=== PATIENT | female | born 1955 | race African-American/Black ===

== ENCOUNTER 2016-12-21 07:20 | Inpatient (IN) | payer MEDICAID, OTHER, SELFPAY ==
[~2016-12-21] VITALS: Ht 165.1 cm; Wt 140.4 kg
[2016-12-21] MEDS ORDERED: NALOXONE 1 MG/ML, 2ML ONE (07:23)
[2016-12-21] MEDS ORDERED: CLEVIDIPINE 50 ML IV ONE (07:25)
[2016-12-21] MEDS: PROPOFOL 100 ML IV PRN ×2 (07:54→23:13)
[2016-12-21 07:59] LABS: HEMATOCRIT 41.9 % (34.6-47.8); HEMOGLOBIN 13.7 g/dL (11.7-16.4); WHITE BLOOD COUNT 13.7 x10^3/uL (3.4-10)
[2016-12-21] MEDS ORDERED: ETOMIDATE 20 MG/10 ML IVPush ONE (08:00)
[2016-12-21] MEDS ORDERED: MIDAZOLAM 1 MG/ML, 2ML IVPush ONE (08:00)
[2016-12-21] MEDS ORDERED: SUCCINYLCHOLINE 20 MG/ML, 10ML IVPush ONE (08:00)
[2016-12-21] MEDS ORDERED: NITROPRUSSIDE 50 MG in DEXTROSE 5% 248 ML IV PRN (08:00)
[2016-12-21] MEDS ORDERED: SODIUM CHLORIDE FLUSH 10ML SYR IVF ONE (08:00)
[2016-12-21 08:10] LABS: ASPARTATE AMINO TRANSFERASE 19 U/L (15-37); BLOOD UREA NITROGEN 8 mg/dL (7-18)
[2016-12-21 08:16] LABS: ACETAMINOPHEN < 2 mcg/mL (10-30); IS PT STATUS REG ER OR PRE ER? YES
[2016-12-21 08:34] LABS: DAU SCREEN DISCLAIMER
[2016-12-21 08:34] LABS: ABG COLLECTION SITE RIGHT RADIAL; COLLATERAL CIRCULATION TESTING NORMAL
[2016-12-21] MEDS ORDERED: OMNIPAQUE 350 MG/ML, 100ML BOTTLE ONE (10:23)
[2016-12-21] MEDS ORDERED: BISACODYL 10 MG SUPP PR PRN ×2 (11:00→12:30)
[2016-12-21] MEDS ORDERED: PHARMACY MAY ADJ FOR RENAL FX MC SCH (11:00)
[2016-12-21] MEDS ORDERED: SENNA/DOCUSATE TABLET NG PRN (11:00)
[2016-12-21] MEDS ORDERED: LIDOCAINE-MPF 1%, 2ML ENDO PRN (11:00)
[2016-12-21] MEDS ORDERED: LACTULOSE 20 GM/30 ML UDC NG PRN (11:00)
[2016-12-21] MEDS ORDERED: SENNOSIDES 8.8 MG/5 ML ORAL SOL NG PRN (11:00)
[2016-12-21] MEDS ORDERED: SUCCINYLCHOLINE 20 MG/ML, 10ML ONE (12:00)
[2016-12-21] MEDS ORDERED: ETOMIDATE 40 MG/20 ML ONE (12:00)
[2016-12-21] MEDS ORDERED: INSULIN ASPART 100 UNITS/ML, PEN SQ-INSULIN SCH (12:30)
[2016-12-21] MEDS ORDERED: POLYETHYLENE GLYCOL 17 GM PACKET PO PRN (12:30)
[2016-12-21] MEDS ORDERED: POTASSIUM CHLORIDE 40 MEQ in SODIUM CHLORIDE 0.9% 500 ML IV ONE (12:30)
[2016-12-21] MEDS ORDERED: PROPOFOL 100 ML IV ONE (12:51)
[2016-12-21] MEDS: INSULIN ASPART 100 UNITS/ML, PEN SQ-INSULIN SCH (19:30)
[2016-12-21] MEDS: FAMOTIDINE 20 MG/2 ML IVPush SCH (21:01)
[2016-12-22] MEDS: INSULIN ASPART 100 UNITS/ML, PEN SQ-INSULIN SCH ×2 (01:30→07:30)
[2016-12-22] MEDS ORDERED: SODIUM CHLORIDE 0.9%, 500ML IVBOLUS ONE (02:00)
[2016-12-22 04:00] VITALS: BP 155/84
[2016-12-22 04:34] LABS: ABG COLLECTION SITE LEFT RADIAL; COLLATERAL CIRCULATION TESTING NORMAL
[2016-12-22 04:35] LABS: HEMATOCRIT 38.9 % (34.6-47.8); HEMOGLOBIN 12.7 g/dL (11.7-16.4); WHITE BLOOD COUNT 15.4 x10^3/uL (3.4-10)
[2016-12-22 04:48] LABS: BLOOD UREA NITROGEN 8 mg/dL (7-18)
[2016-12-22 04:59] LABS: ASPARTATE AMINO TRANSFERASE 14 U/L (15-37)
[2016-12-22] MEDS: PROPOFOL 100 ML IV PRN (06:17)
[2016-12-22] MEDS ORDERED: POTASSIUM CHLORIDE 10% 40 MEQ/30 ML UDC PO ONE (07:30)
[2016-12-22] MEDS ORDERED: LEVETIRACETAM 1,000 MG in SODIUM CHLORIDE 0.9% 100 ML IV ONE (08:00)
[2016-12-22] MEDS: FAMOTIDINE 20 MG/2 ML IVPush SCH ×2 (08:04→20:52)
[2016-12-22] MEDS ORDERED: SODIUM CHLORIDE 0.9% 1,000 ML IV ONE (09:00)
[2016-12-22] MEDS: DILTIAZEM 30 MG TABLET PO SCH ×2 (13:19→19:45)
[2016-12-22] MEDS: LEVETIRACETAM 500 MG in SODIUM CHLORIDE 0.9% 100 ML IV SCH (19:45)
[2016-12-23] MEDS: DILTIAZEM 30 MG TABLET PO SCH (01:53)
[2016-12-23 04:00] VITALS: BP 142/64
[2016-12-23 04:24] LABS: ABG COLLECTION SITE RIGHT RADIAL; COLLATERAL CIRCULATION TESTING NORMAL; HEMATOCRIT 40.1 % (34.6-47.8); WHITE BLOOD COUNT 20.2 x10^3/uL (3.4-10)
[2016-12-23 04:34] LABS: BLOOD UREA NITROGEN 15 mg/dL (7-18)
[2016-12-23] MEDS ORDERED: PHARMACOKINETIC MONITORING MC PRN ×2 (07:30→16:30)
[2016-12-23] MEDS ORDERED: VANCOMYCIN PER PHARMACY MC PRN (07:30)
[2016-12-23] MEDS ORDERED: VANCOMYCIN 1,900 MG in SODIUM CHLORIDE 0.9% 250 ML IV SCH (07:30)
[2016-12-23] MEDS ORDERED: PHARMACOKINETIC CONSULTATION MC ONE (07:30)
[2016-12-23] MEDS: LEVETIRACETAM 500 MG in SODIUM CHLORIDE 0.9% 100 ML IV SCH ×2 (09:09→20:56)
[2016-12-23] MEDS: DILTIAZEM 60 MG TABLET PO SCH ×3 (09:10→20:55)
[2016-12-23] MEDS: FAMOTIDINE 20 MG/2 ML IVPush SCH ×2 (09:11→20:55)
[2016-12-23] MEDS ORDERED: POTASSIUM CHLORIDE 10% 40 MEQ/30 ML UDC PO ONE (09:30)
[2016-12-23] MEDS: PIPERACILLIN/TAZO/PMX 3.375GM 50 ML IV SCH ×3 (09:47→19:20)
[2016-12-23] MEDS ORDERED: PHARMACY MAY ADJ FOR RENAL FX MC SCH (16:30)
[2016-12-23] MEDS ORDERED: POLYETHYLENE GLYCOL 17 GM PACKET PO PRN (16:30)
[2016-12-23] MEDS ORDERED: BISACODYL 10 MG SUPP PR PRN ×2 (16:30)
[2016-12-23] MEDS ORDERED: LACTULOSE 20 GM/30 ML UDC NG PRN (16:30)
[2016-12-23] MEDS: SODIUM CHLORIDE 0.9% 1,000 ML IV SCH (19:22)
[2016-12-24] MEDS: PIPERACILLIN/TAZO/PMX 3.375GM 50 ML IV SCH ×4 (01:09→18:51)
[2016-12-24] MEDS: DILTIAZEM 60 MG TABLET PO SCH ×4 (03:40→20:48)
[2016-12-24] MEDS: VANCOMYCIN 1,900 MG in SODIUM CHLORIDE 0.9% 250 ML IV SCH ×2 (03:40→21:15)
[2016-12-24 05:00] VITALS: BP 139/59
[2016-12-24 05:44] LABS: ABG COLLECTION SITE RIGHT RADIAL; COLLATERAL CIRCULATION TESTING NORMAL
[2016-12-24 05:48] LABS: HEMATOCRIT 39.7 % (34.6-47.8); HEMOGLOBIN 12.6 g/dL (11.7-16.4); WHITE BLOOD COUNT 19.1 x10^3/uL (3.4-10)
[2016-12-24 06:00] LABS: BLOOD UREA NITROGEN 27 mg/dL (7-18)
[2016-12-24] MEDS: FAMOTIDINE 20 MG/2 ML IVPush SCH ×2 (07:46→20:48)
[2016-12-24] MEDS: SENNA/DOCUSATE TABLET NG PRN (07:46)
[2016-12-24] MEDS: LEVETIRACETAM 500 MG in SODIUM CHLORIDE 0.9% 100 ML IV SCH ×2 (09:14→20:48)
[2016-12-24] MEDS ORDERED: niCARDipine 100 MG in SODIUM CHLORIDE 0.9% 210 ML IV PRN (09:30)
[2016-12-24] MEDS: LISINOPRIL 10 MG TABLET PO SCH ×2 (09:38→20:48)
[2016-12-24] MEDS: hydrALAzine 20 MG/ML, 1ML IV PRN ×5 (12:33→23:27)
[2016-12-24] MEDS ORDERED: LABETALOL 5MG/ML, 20ML IV PRN (13:30)
[2016-12-24] MEDS: SODIUM CHLORIDE 0.9% 1,000 ML IV SCH (13:34)
[2016-12-24] MEDS ORDERED: POTASSIUM CHLORIDE 20 MEQ PACKET NG ONE (17:00)
[2016-12-24] MEDS: ACETAMINOPHEN 325 MG TABLET NG PRN (17:31)
[2016-12-25] MEDS: PIPERACILLIN/TAZO/PMX 3.375GM 50 ML IV SCH ×4 (02:38→20:13)
[2016-12-25] MEDS: DILTIAZEM 60 MG TABLET PO SCH ×4 (02:39→20:13)
[2016-12-25] MEDS: hydrALAzine 20 MG/ML, 1ML IV PRN ×3 (02:39→15:14)
[2016-12-25 04:11] LABS: ABG COLLECTION SITE RIGHT RADIAL; COLLATERAL CIRCULATION TESTING NORMAL; HEMATOCRIT 38.7 % (34.6-47.8); HEMOGLOBIN 12.3 g/dL (11.7-16.4)
[2016-12-25 04:24] LABS: BLOOD UREA NITROGEN 45 mg/dL (7-18)
[2016-12-25] MEDS: LEVETIRACETAM 500 MG in SODIUM CHLORIDE 0.9% 100 ML IV SCH ×2 (09:49→20:13)
[2016-12-25] MEDS: FAMOTIDINE 20 MG/2 ML IVPush SCH (09:51)
[2016-12-25] MEDS: LISINOPRIL 20 MG TABLET PO SCH ×2 (11:25→20:13)
[2016-12-25] MEDS: ESMOLOL/NS PMX 250 ML IV PRN (18:23)
[2016-12-25] MEDS: ACETAMINOPHEN 325 MG TABLET NG PRN (20:14)
[2016-12-25] MEDS: SODIUM CHLORIDE 0.9% 1,000 ML IV SCH (20:14)
[2016-12-26] MEDS: PIPERACILLIN/TAZO/PMX 3.375GM 50 ML IV SCH ×4 (01:43→19:54)
[2016-12-26] MEDS: DILTIAZEM 60 MG TABLET PO SCH ×4 (03:02→20:41)
[2016-12-26 03:44] VITALS: BP 131/54
[2016-12-26 03:59] LABS: HEMATOCRIT 36.6 % (34.6-47.8); HEMOGLOBIN 11.8 g/dL (11.7-16.4); WHITE BLOOD COUNT 17.8 x10^3/uL (3.4-10)
[2016-12-26 04:08] LABS: BLOOD UREA NITROGEN 55 mg/dL (7-18)
[2016-12-26 04:46] LABS: ABG COLLECTION SITE RIGHT RADIAL; COLLATERAL CIRCULATION TESTING NORMAL
[2016-12-26] MEDS: SODIUM CHLORIDE 0.45% 1,000 ML IV SCH ×2 (09:40→20:41)
[2016-12-26] MEDS: LISINOPRIL 20 MG TABLET PO SCH ×2 (09:40→20:41)
[2016-12-26] MEDS: LEVETIRACETAM 500 MG in SODIUM CHLORIDE 0.9% 100 ML IV SCH ×2 (09:40→19:54)
[2016-12-26] MEDS: FAMOTIDINE 20 MG/2 ML IVPush SCH (09:41)
[2016-12-26] MEDS: ESMOLOL/NS PMX 250 ML IV PRN (18:36)
[2016-12-26] MEDS: ACETAMINOPHEN 325 MG TABLET NG PRN (20:41)
[2016-12-27] MEDS: PIPERACILLIN/TAZO/PMX 3.375GM 50 ML IV SCH ×4 (02:38→21:08)
[2016-12-27] MEDS: DILTIAZEM 60 MG TABLET PO SCH ×4 (02:38→21:42)
[2016-12-27 04:00] VITALS: BP 121/55
[2016-12-27 04:22] LABS: HEMATOCRIT 30.7 % (34.6-47.8); HEMOGLOBIN 9.9 g/dL (11.7-16.4); WHITE BLOOD COUNT 19.9 x10^3/uL (3.4-10)
[2016-12-27 04:33] LABS: ABG COLLECTION SITE RIGHT RADIAL; COLLATERAL CIRCULATION TESTING NORMAL
[2016-12-27 04:36] LABS: BLOOD UREA NITROGEN 62 mg/dL (7-18)
[2016-12-27 04:39] LABS: ASPARTATE AMINO TRANSFERASE 37 U/L (15-37); DIFF TOTAL CELLS COUNTED 100 CELL DIFF
[2016-12-27 04:45] LABS: VERIFY COUNTS? YES
[2016-12-27] MEDS: SODIUM CHLORIDE 0.45% 1,000 ML IV SCH ×2 (05:41→17:10)
[2016-12-27] MEDS: ESMOLOL/NS PMX 250 ML IV PRN (05:42)
[2016-12-27] MEDS: LEVETIRACETAM 500 MG in SODIUM CHLORIDE 0.9% 100 ML IV SCH ×2 (08:06→21:08)
[2016-12-27] MEDS: FAMOTIDINE 20 MG/2 ML IVPush SCH (08:06)
[2016-12-27] MEDS: LISINOPRIL 20 MG TABLET PO SCH ×2 (08:11→21:38)
[2016-12-27] MEDS: ACETAMINOPHEN 325 MG TABLET NG PRN (10:30)
[2016-12-27] MEDS ORDERED: VANCOMYCIN 1,500 MG in SODIUM CHLORIDE 0.9% 250 ML IV ONE (17:00)
[2016-12-27] MEDS: CHOLESTYRAMINE LIGHT 4GM PACKET PO SCH (23:00)
[2016-12-28] MEDS: PIPERACILLIN/TAZO/PMX 3.375GM 50 ML IV SCH ×4 (02:30→21:19)
[2016-12-28 04:00] VITALS: BP 140/60
[2016-12-28] MEDS: DILTIAZEM 60 MG TABLET PO SCH ×4 (04:15→21:37)
[2016-12-28 04:35] LABS: ABG COLLECTION SITE RIGHT RADIAL; COLLATERAL CIRCULATION TESTING NORMAL
[2016-12-28 06:11] LABS: HEMATOCRIT 32.7 % (34.6-47.8); HEMOGLOBIN 10.5 g/dL (11.7-16.4); WHITE BLOOD COUNT 17.4 x10^3/uL (3.4-10)
[2016-12-28 06:15] LABS: BLOOD UREA NITROGEN 67 mg/dL (7-18)
[2016-12-28 07:00] LABS: DIFF TOTAL CELLS COUNTED 100 CELL DIFF
[2016-12-28 07:01] LABS: VERIFY COUNTS? YES
[2016-12-28 07:02] LABS: ANISOCYTOSIS 1+; HYPOCHROMIA 1+
[2016-12-28] MEDS: LEVETIRACETAM 500 MG in SODIUM CHLORIDE 0.9% 100 ML IV SCH ×2 (08:23→21:07)
[2016-12-28] MEDS: LISINOPRIL 20 MG TABLET PO SCH ×2 (08:24→21:19)
[2016-12-28] MEDS: FAMOTIDINE 20 MG/2 ML IVPush SCH (08:25)
[2016-12-28] MEDS: CHOLESTYRAMINE LIGHT 4GM PACKET PO SCH ×2 (08:25→21:19)
[2016-12-28] MEDS: SODIUM CHLORIDE 0.45% 1,000 ML IV SCH ×3 (08:26→23:42)
[2016-12-28] MEDS: ALBUMIN HUMAN 25% 100 ML IV SCH ×2 (12:46→19:46)
[2016-12-28] MEDS: hydrALAzine 20 MG/ML, 1ML IV PRN (21:33)
[2016-12-29] MEDS: ESMOLOL/NS PMX 250 ML IV PRN (02:54)
[2016-12-29] MEDS: PIPERACILLIN/TAZO/PMX 3.375GM 50 ML IV SCH ×4 (03:00→22:14)
[2016-12-29 04:00] VITALS: BP 138/62
[2016-12-29] MEDS: ALBUMIN HUMAN 25% 100 ML IV SCH ×3 (04:09→20:24)
[2016-12-29] MEDS: DILTIAZEM 60 MG TABLET PO SCH ×4 (04:14→21:42)
[2016-12-29 05:11] LABS: ABG COLLECTION SITE RIGHT RADIAL; COLLATERAL CIRCULATION TESTING NORMAL
[2016-12-29 05:20] LABS: HEMATOCRIT 31.1 % (34.6-47.8); HEMOGLOBIN 10.1 g/dL (11.7-16.4); WHITE BLOOD COUNT 16.3 x10^3/uL (3.4-10)
[2016-12-29 05:34] LABS: BLOOD UREA NITROGEN 56 mg/dL (7-18)
[2016-12-29 05:36] LABS: DIFF TOTAL CELLS COUNTED 100 CELL DIFF
[2016-12-29 05:38] LABS: ANISOCYTOSIS 1+; VERIFY COUNTS? YES
[2016-12-29] MEDS: LEVETIRACETAM 500 MG in SODIUM CHLORIDE 0.9% 100 ML IV SCH ×2 (08:07→21:38)
[2016-12-29] MEDS: FAMOTIDINE 20 MG/2 ML IVPush SCH (09:21)
[2016-12-29] MEDS: CHOLESTYRAMINE LIGHT 4GM PACKET PO SCH ×2 (09:21→21:43)
[2016-12-29] MEDS: SODIUM CHLORIDE 0.45% 1,000 ML IV SCH (11:55)
[2016-12-29] MEDS ORDERED: VANCOMYCIN 1,500 MG in SODIUM CHLORIDE 0.9% 250 ML IV SCH (17:00)
[2016-12-30] MEDS: SODIUM CHLORIDE 0.45% 1,000 ML IV SCH ×3 (01:41→22:46)
[2016-12-30] MEDS: ESMOLOL/NS PMX 250 ML IV PRN ×3 (01:42→16:33)
[2016-12-30] MEDS: ALBUMIN HUMAN 25% 100 ML IV SCH ×3 (02:39→19:18)
[2016-12-30 03:00] LABS: HEMATOCRIT 28.8 % (34.6-47.8); HEMOGLOBIN 9.4 g/dL (11.7-16.4); WHITE BLOOD COUNT 16.5 x10^3/uL (3.4-10)
[2016-12-30 03:11] LABS: BLOOD UREA NITROGEN 59 mg/dL (7-18)
[2016-12-30] MEDS: PIPERACILLIN/TAZO/PMX 3.375GM 50 ML IV SCH ×2 (03:39→09:00)
[2016-12-30] MEDS: DILTIAZEM 60 MG TABLET PO SCH ×4 (03:40→21:17)
[2016-12-30 04:00] VITALS: BP 130/68
[2016-12-30 04:45] LABS: DIFF TOTAL CELLS COUNTED 100 CELL DIFF
[2016-12-30 04:47] LABS: VERIFY COUNTS? YES
[2016-12-30 04:48] LABS: ANISOCYTOSIS 1+
[2016-12-30 04:56] LABS: ABG COLLECTION SITE LEFT RADIAL; COLLATERAL CIRCULATION TESTING NORMAL
[2016-12-30] MEDS: LEVETIRACETAM 500 MG in SODIUM CHLORIDE 0.9% 100 ML IV SCH ×2 (08:24→21:17)
[2016-12-30] MEDS: FAMOTIDINE 20 MG/2 ML IVPush SCH (09:00)
[2016-12-30] MEDS: CHOLESTYRAMINE LIGHT 4GM PACKET PO SCH ×2 (10:37→21:17)
[2016-12-30] MEDS: CEFTRIAXONE PMX 2GM/50ML 50 ML IVPB SCH (10:38)
[2016-12-30] MEDS: LINEZOLID PMX 600MG/300ML 300 ML IV SCH ×2 (11:40→22:46)
[2016-12-30] MEDS ORDERED: LACTULOSE 20 GM/30 ML UDC NG PRN (17:00)
[2016-12-30] MEDS ORDERED: BISACODYL 10 MG SUPP PR PRN ×2 (17:00)
[2016-12-30] MEDS ORDERED: LIDOCAINE-MPF 1%, 2ML ENDO PRN (17:00)
[2016-12-30] MEDS ORDERED: SENNOSIDES 8.8 MG/5 ML ORAL SOL NG PRN (17:00)
[2016-12-30] MEDS ORDERED: POLYETHYLENE GLYCOL 17 GM PACKET PO PRN (17:00)
[2016-12-30] MEDS ORDERED: PHARMACY MAY ADJ FOR RENAL FX MC SCH (17:00)
[2016-12-31] MEDS: ESMOLOL/NS PMX 250 ML IV PRN ×2 (00:58→13:08)
[2016-12-31 03:06] LABS: HEMOGLOBIN 9.2 g/dL (11.7-16.4); WHITE BLOOD COUNT 19.6 x10^3/uL (3.4-10)
[2016-12-31 03:12] LABS: BLOOD UREA NITROGEN 64 mg/dL (7-18)
[2016-12-31] MEDS: ALBUMIN HUMAN 25% 100 ML IV SCH ×3 (03:29→19:53)
[2016-12-31] MEDS: SODIUM CHLORIDE 0.45% 1,000 ML IV SCH ×2 (03:30→16:06)
[2016-12-31] MEDS: DILTIAZEM 60 MG TABLET PO SCH ×4 (03:30→21:31)
[2016-12-31 04:00] VITALS: BP 129/67
[2016-12-31 04:00] LABS: DIFF TOTAL CELLS COUNTED 100 CELL DIFF
[2016-12-31 04:04] LABS: ANISOCYTOSIS 1+; VERIFY COUNTS? YES
[2016-12-31 04:05] LABS: HYPOCHROMIA 1+; POLYCHROMASIA 1+
[2016-12-31 04:30] LABS: ABG COLLECTION SITE LEFT RADIAL; COLLATERAL CIRCULATION TESTING NORMAL
[2016-12-31] MEDS ORDERED: PANTOPRAZOLE 40 MG IV IVPush SCH (07:30)
[2016-12-31] MEDS: PANTOPRAZOLE 40 MG IV IVPush SCH (08:13)
[2016-12-31] MEDS: LEVETIRACETAM 500 MG in SODIUM CHLORIDE 0.9% 100 ML IV SCH ×2 (08:13→19:53)
[2016-12-31] MEDS: CEFTRIAXONE PMX 2GM/50ML 50 ML IVPB SCH (09:52)
[2016-12-31] MEDS: CHOLESTYRAMINE LIGHT 4GM PACKET PO SCH ×2 (09:52→21:31)
[2016-12-31] MEDS: LINEZOLID PMX 600MG/300ML 300 ML IV SCH ×2 (10:57→22:23)
[2016-12-31] MEDS: [UNRECOGNIZED DRUG - OTHER] PO PRN (19:56)
[2017-01-01] MEDS: PROPOFOL 100 ML IV PRN ×3 (02:30→20:41)
[2017-01-01] MEDS: ALBUMIN HUMAN 25% 100 ML IV SCH ×3 (03:29→21:33)
[2017-01-01] MEDS: SODIUM CHLORIDE 0.45% 1,000 ML IV SCH (03:29)
[2017-01-01] MEDS: DILTIAZEM 60 MG TABLET PO SCH ×4 (03:31→20:40)
[2017-01-01 03:49] LABS: HEMATOCRIT 26.5 % (34.6-47.8); HEMOGLOBIN 8.8 g/dL (11.7-16.4); WHITE BLOOD COUNT 19.5 x10^3/uL (3.4-10)
[2017-01-01 03:58] LABS: ASPARTATE AMINO TRANSFERASE 27 U/L (15-37); BLOOD UREA NITROGEN 57 mg/dL (7-18)
[2017-01-01 04:18] LABS: ABG COLLECTION SITE LEFT RADIAL; COLLATERAL CIRCULATION TESTING NORMAL
[2017-01-01 04:39] LABS: DIFF TOTAL CELLS COUNTED 100 CELL DIFF
[2017-01-01 04:41] LABS: ANISOCYTOSIS 1+; POLYCHROMASIA 1+; VERIFY COUNTS? YES
[2017-01-01 05:00] VITALS: BP 126/65
[2017-01-01] MEDS: LEVETIRACETAM 500 MG in SODIUM CHLORIDE 0.9% 100 ML IV SCH ×2 (08:06→20:37)
[2017-01-01] MEDS: PANTOPRAZOLE 40 MG IV IVPush SCH (08:13)
[2017-01-01] MEDS ORDERED: FUROSEMIDE 40 MG/4 ML IV ONE ×2 (09:30→14:00)
[2017-01-01] MEDS ORDERED: FENTANYL PF 100 MCG/2ML IVPush PRN (09:30)
[2017-01-01] MEDS: CHOLESTYRAMINE LIGHT 4GM PACKET PO SCH ×2 (11:08→20:41)
[2017-01-01] MEDS: LINEZOLID PMX 600MG/300ML 300 ML IV SCH ×2 (11:11→22:34)
[2017-01-01] MEDS: CEFTRIAXONE PMX 2GM/50ML 50 ML IVPB SCH (11:11)
[2017-01-01] MEDS: ESMOLOL/NS PMX 250 ML IV PRN (16:21)
[2017-01-01] MEDS: [UNRECOGNIZED DRUG - OTHER] PO PRN ×2 (20:46→22:34)
[2017-01-02] MEDS: ALBUMIN HUMAN 25% 100 ML IV SCH ×3 (02:32→19:20)
[2017-01-02] MEDS: [UNRECOGNIZED DRUG - OTHER] PO PRN ×3 (02:32→22:11)
[2017-01-02] MEDS: PROPOFOL 100 ML IV PRN ×3 (02:35→18:21)
[2017-01-02] MEDS: DILTIAZEM 60 MG TABLET PO SCH ×4 (03:25→20:51)
[2017-01-02 04:12] VITALS: BP 112/68
[2017-01-02 04:34] LABS: ABG COLLECTION SITE RIGHT RADIAL; COLLATERAL CIRCULATION TESTING NORMAL
[2017-01-02 05:42] LABS: HEMATOCRIT 23.3 % (34.6-47.8); HEMOGLOBIN 7.6 g/dL (11.7-16.4); WHITE BLOOD COUNT 17.5 x10^3/uL (3.4-10)
[2017-01-02 05:45] LABS: BLOOD UREA NITROGEN 55 mg/dL (7-18)
[2017-01-02] MEDS: LEVETIRACETAM 500 MG in SODIUM CHLORIDE 0.9% 100 ML IV SCH ×2 (08:10→19:20)
[2017-01-02] MEDS: PANTOPRAZOLE 40 MG IV IVPush SCH (08:10)
[2017-01-02] MEDS: ESMOLOL/NS PMX 250 ML IV PRN (08:11)
[2017-01-02] MEDS: CHOLESTYRAMINE LIGHT 4GM PACKET PO SCH ×2 (10:13→20:50)
[2017-01-02] MEDS: DOXAZOSIN 2MG TABLET NG SCH (10:50)
[2017-01-02] MEDS: FUROSEMIDE 40 MG/4 ML IV SCH ×2 (10:50→20:51)
[2017-01-02] MEDS: DEXAMETHASONE 4 MG/ML, 1ML IVPush SCH ×3 (10:50→20:51)
[2017-01-02] MEDS: CEFTRIAXONE PMX 2GM/50ML 50 ML IVPB SCH (10:51)
[2017-01-02] MEDS: LINEZOLID PMX 600MG/300ML 300 ML IV SCH ×2 (10:51→22:08)
[2017-01-02] MEDS: POTASSIUM CHLORIDE 10% 40 MEQ/30 ML UDC PO SCH ×2 (14:51→20:50)
[2017-01-03] MEDS: ALBUMIN HUMAN 25% 100 ML IV SCH ×3 (03:02→18:36)
[2017-01-03] MEDS: DILTIAZEM 60 MG TABLET PO SCH ×4 (03:06→21:39)
[2017-01-03] MEDS: DEXAMETHASONE 4 MG/ML, 1ML IVPush SCH ×4 (03:06→21:38)
[2017-01-03] MEDS: [UNRECOGNIZED DRUG - OTHER] PO PRN ×5 (03:07→16:15)
[2017-01-03 04:59] VITALS: BP 130/60
[2017-01-03 05:10] LABS: ABG COLLECTION SITE RIGHT RADIAL; COLLATERAL CIRCULATION TESTING NORMAL
[2017-01-03 05:29] LABS: HEMATOCRIT 25.6 % (34.6-47.8); HEMOGLOBIN 8.4 g/dL (11.7-16.4); WHITE BLOOD COUNT 19.4 x10^3/uL (3.4-10)
[2017-01-03 05:35] LABS: BLOOD UREA NITROGEN 67 mg/dL (7-18)
[2017-01-03] MEDS: PANTOPRAZOLE 40 MG IV IVPush SCH (07:47)
[2017-01-03] MEDS: LEVETIRACETAM 500 MG in SODIUM CHLORIDE 0.9% 100 ML IV SCH ×2 (07:47→19:32)
[2017-01-03] MEDS: DOXAZOSIN 2MG TABLET NG SCH (07:48)
[2017-01-03] MEDS: CHOLESTYRAMINE LIGHT 4GM PACKET PO SCH ×2 (09:54→20:31)
[2017-01-03] MEDS: LINEZOLID PMX 600MG/300ML 300 ML IV SCH ×2 (09:54→21:39)
[2017-01-03] MEDS: CEFTRIAXONE PMX 2GM/50ML 50 ML IVPB SCH (09:54)
[2017-01-03] MEDS: ESMOLOL/NS PMX 250 ML IV PRN (18:35)
[2017-01-03] MEDS: PROPOFOL 100 ML IV PRN ×2 (18:35→20:31)
[2017-01-04] MEDS: DILTIAZEM 60 MG TABLET PO SCH ×4 (02:55→20:58)
[2017-01-04] MEDS: ALBUMIN HUMAN 25% 100 ML IV SCH ×3 (02:55→20:55)
[2017-01-04] MEDS: DEXAMETHASONE 4 MG/ML, 1ML IVPush SCH (02:55)
[2017-01-04 03:22] LABS: HEMATOCRIT 25.4 % (34.6-47.8); HEMOGLOBIN 8.1 g/dL (11.7-16.4); WHITE BLOOD COUNT 21.9 x10^3/uL (3.4-10)
[2017-01-04 03:31] LABS: BLOOD UREA NITROGEN 76 mg/dL (7-18)
[2017-01-04 04:25] LABS: ABG COLLECTION SITE LEFT RADIAL; COLLATERAL CIRCULATION TESTING NORMAL
[2017-01-04] MEDS: ESMOLOL/NS PMX 250 ML IV PRN ×3 (06:31→20:01)
[2017-01-04] MEDS: LEVETIRACETAM 500 MG in SODIUM CHLORIDE 0.9% 100 ML IV SCH ×2 (08:28→19:57)
[2017-01-04] MEDS: PANTOPRAZOLE 40 MG IV IVPush SCH (08:28)
[2017-01-04] MEDS: [UNRECOGNIZED DRUG - OTHER] PO PRN ×4 (08:32→19:59)
[2017-01-04] MEDS: PROPOFOL 100 ML IV PRN ×2 (10:08→18:00)
[2017-01-04] MEDS: CHOLESTYRAMINE LIGHT 4GM PACKET PO SCH ×2 (10:09→20:57)
[2017-01-04] MEDS: DOXAZOSIN 2MG TABLET NG SCH (10:09)
[2017-01-04] MEDS: CEFTRIAXONE PMX 2GM/50ML 50 ML IVPB SCH (10:09)
[2017-01-04] MEDS: SPIRONOLACTONE 25 MG TABLET PO SCH (10:16)
[2017-01-04] MEDS: LINEZOLID PMX 600MG/300ML 300 ML IV SCH ×2 (10:32→22:44)
[2017-01-05] MEDS: PROPOFOL 100 ML IV PRN ×3 (00:57→19:48)
[2017-01-05] MEDS: DILTIAZEM 60 MG TABLET PO SCH ×4 (03:32→21:13)
[2017-01-05] MEDS: [UNRECOGNIZED DRUG - OTHER] PO PRN ×4 (03:32→11:20)
[2017-01-05 04:14] LABS: HEMATOCRIT 25.4 % (34.6-47.8); HEMOGLOBIN 8.1 g/dL (11.7-16.4); WHITE BLOOD COUNT 17.1 x10^3/uL (3.4-10)
[2017-01-05 04:21] LABS: BLOOD UREA NITROGEN 89 mg/dL (7-18)
[2017-01-05 04:44] LABS: ABG COLLECTION SITE LEFT RADIAL; COLLATERAL CIRCULATION TESTING NORMAL
[2017-01-05] MEDS: ALBUMIN HUMAN 25% 100 ML IV SCH ×3 (05:13→21:12)
[2017-01-05] MEDS: ESMOLOL/NS PMX 250 ML IV PRN ×2 (05:18→21:41)
[2017-01-05] MEDS: PANTOPRAZOLE 40 MG IV IVPush SCH (07:14)
[2017-01-05] MEDS: LEVETIRACETAM 500 MG in SODIUM CHLORIDE 0.9% 100 ML IV SCH ×2 (07:15→19:54)
[2017-01-05] MEDS: CEFTRIAXONE PMX 2GM/50ML 50 ML IVPB SCH (10:21)
[2017-01-05] MEDS: SPIRONOLACTONE 25 MG TABLET PO SCH (10:21)
[2017-01-05] MEDS: DOXAZOSIN 2MG TABLET NG SCH (10:21)
[2017-01-05] MEDS: SENNA/DOCUSATE TABLET NG PRN (10:22)
[2017-01-05] MEDS: LINEZOLID PMX 600MG/300ML 300 ML IV SCH ×2 (11:20→22:26)
[2017-01-05 21:25] LABS: HEMOGLOBIN 7.7 g/dL (11.7-16.4); WHITE BLOOD COUNT 19.9 x10^3/uL (3.4-10)
[2017-01-05 21:43] LABS: DIFF TOTAL CELLS COUNTED 100 CELL DIFF
[2017-01-05 21:44] LABS: VERIFY COUNTS? YES
[2017-01-05 21:45] LABS: ANISOCYTOSIS 1+
[2017-01-06] MEDS: DILTIAZEM 60 MG TABLET PO SCH ×4 (03:56→21:21)
[2017-01-06] MEDS: [UNRECOGNIZED DRUG - OTHER] PO PRN ×2 (03:57→09:30)
[2017-01-06 04:00] VITALS: BP 136/68
[2017-01-06] MEDS: ALBUMIN HUMAN 25% 100 ML IV SCH ×3 (04:11→20:49)
[2017-01-06 04:16] LABS: ABG COLLECTION SITE RIGHT RADIAL; COLLATERAL CIRCULATION TESTING NORMAL
[2017-01-06 04:18] LABS: HEMATOCRIT 24.6 % (34.6-47.8); HEMOGLOBIN 7.6 g/dL (11.7-16.4); WHITE BLOOD COUNT 18.4 x10^3/uL (3.4-10)
[2017-01-06 04:28] LABS: BLOOD UREA NITROGEN 92 mg/dL (7-18)
[2017-01-06 04:30] LABS: DIFF TOTAL CELLS COUNTED 100 CELL DIFF
[2017-01-06 04:31] LABS: VERIFY COUNTS? YES
[2017-01-06 04:32] LABS: ANISOCYTOSIS 1+; MICROCYTOSIS 1+
[2017-01-06 06:18] VITALS: BP 136/68
[2017-01-06] MEDS ORDERED: FENTANYL PF 100 MCG/2ML IVPush ONE (08:30)
[2017-01-06] MEDS: SPIRONOLACTONE 25 MG TABLET PO SCH (09:29)
[2017-01-06] MEDS: CEFTRIAXONE PMX 2GM/50ML 50 ML IVPB SCH (09:29)
[2017-01-06] MEDS: DOXAZOSIN 2MG TABLET NG SCH (09:29)
[2017-01-06] MEDS: PANTOPRAZOLE 40 MG IV IVPush SCH (09:30)
[2017-01-06] MEDS: LEVETIRACETAM 500 MG in SODIUM CHLORIDE 0.9% 100 ML IV SCH ×2 (09:30→20:06)
[2017-01-06] MEDS: LINEZOLID PMX 600MG/300ML 300 ML IV SCH ×2 (10:53→22:45)
[2017-01-06] MEDS: FENTANYL PF 2,500 MCG in SODIUM CHLORIDE 0.9% 200 ML IV PRN (10:54)
[2017-01-06] MEDS: INSULIN DETEMIR 100 UNITS/ML, PEN SQ-INSULIN SCH ×2 (11:10→20:06)
[2017-01-06] MEDS: INSULIN ASPART 100 UNITS/ML, PEN SQ-INSULIN SCH ×3 (11:11→21:06)
[2017-01-06] MEDS ORDERED: BISACODYL 10 MG SUPP PR PRN ×2 (15:00)
[2017-01-06] MEDS ORDERED: LACTULOSE 20 GM/30 ML UDC NG PRN (15:00)
[2017-01-06] MEDS ORDERED: PHARMACY MAY ADJ FOR RENAL FX MC SCH ×2 (15:00)
[2017-01-06] MEDS ORDERED: LIDOCAINE-MPF 1%, 2ML ENDO PRN (15:00)
[2017-01-06] MEDS ORDERED: SENNA/DOCUSATE TABLET NG PRN (15:00)
[2017-01-06] MEDS ORDERED: ACETAMINOPHEN 325 MG TABLET NG PRN ×2 (15:00)
[2017-01-06] MEDS ORDERED: POLYETHYLENE GLYCOL 17 GM PACKET PO PRN (15:00)
[2017-01-06] MEDS: ESMOLOL/NS PMX 250 ML IV PRN ×2 (16:34→19:48)
[2017-01-07 03:30] VITALS: BP 141/68
[2017-01-07] MEDS: DILTIAZEM 60 MG TABLET PO SCH (03:39)
[2017-01-07] MEDS: ALBUMIN HUMAN 25% 100 ML IV SCH ×3 (05:08→19:57)
[2017-01-07] MEDS: SPIRONOLACTONE 25 MG TABLET PO SCH (07:54)
[2017-01-07] MEDS: PANTOPRAZOLE 40 MG IV IVPush SCH (07:54)
[2017-01-07] MEDS: LEVETIRACETAM 500 MG in SODIUM CHLORIDE 0.9% 100 ML IV SCH ×2 (07:54→19:58)
[2017-01-07] MEDS: INSULIN DETEMIR 100 UNITS/ML, PEN SQ-INSULIN SCH ×2 (07:55→19:55)
[2017-01-07] MEDS: INSULIN ASPART 100 UNITS/ML, PEN SQ-INSULIN SCH ×4 (07:55→19:56)
[2017-01-07] MEDS: DOXAZOSIN 2MG TABLET NG SCH (07:56)
[2017-01-07] MEDS: DILTIAZEM 90 MG TABLET PO SCH ×3 (08:24→20:08)
[2017-01-07] MEDS: LINEZOLID PMX 600MG/300ML 300 ML IV SCH ×2 (11:21→21:37)
[2017-01-07] MEDS: CEFTRIAXONE PMX 2GM/50ML 50 ML IVPB SCH (11:21)
[2017-01-07] MEDS ORDERED: FUROSEMIDE 40 MG/4 ML IV ONE (14:00)
[2017-01-07] MEDS: FENTANYL PF 2,500 MCG in SODIUM CHLORIDE 0.9% 200 ML IV PRN (21:37)
[2017-01-08] MEDS: DILTIAZEM 90 MG TABLET PO SCH ×4 (01:18→20:26)
[2017-01-08] MEDS ORDERED: FUROSEMIDE 40 MG/4 ML IV ONE (02:00)
[2017-01-08] MEDS: ALBUMIN HUMAN 25% 100 ML IV SCH ×2 (04:14→13:56)
[2017-01-08] MEDS: INSULIN ASPART 100 UNITS/ML, PEN SQ-INSULIN SCH ×4 (04:19→23:30)
[2017-01-08 04:44] LABS: HEMOGLOBIN 7.1 g/dL (11.7-16.4); WHITE BLOOD COUNT 17.6 x10^3/uL (3.4-10)
[2017-01-08 04:54] LABS: HEMATOCRIT 22.4 % (34.6-47.8)
[2017-01-08 04:56] LABS: ASPARTATE AMINO TRANSFERASE 36 U/L (15-37)
[2017-01-08 05:00] VITALS: BP 125/62
[2017-01-08 05:17] LABS: BLOOD UREA NITROGEN 114 mg/dL (7-18)
[2017-01-08] MEDS: PANTOPRAZOLE 40 MG IV IVPush SCH (08:46)
[2017-01-08] MEDS: INSULIN DETEMIR 100 UNITS/ML, PEN SQ-INSULIN SCH ×2 (08:46→19:22)
[2017-01-08] MEDS: LEVETIRACETAM 500 MG in SODIUM CHLORIDE 0.9% 100 ML IV SCH ×2 (08:46→19:22)
[2017-01-08] MEDS: SPIRONOLACTONE 25 MG TABLET PO SCH (08:47)
[2017-01-08] MEDS: DOXAZOSIN 2MG TABLET NG SCH (08:47)
[2017-01-08] MEDS: MICAFUNGIN 100 MG in SODIUM CHLORIDE 0.9% 100 ML IV SCH (09:14)
[2017-01-08 09:21] LABS: ABG COLLECTION SITE RIGHT RADIAL; COLLATERAL CIRCULATION TESTING NORMAL
[2017-01-08] MEDS: CEFTRIAXONE PMX 2GM/50ML 50 ML IVPB SCH (10:31)
[2017-01-08] MEDS: LINEZOLID PMX 600MG/300ML 300 ML IV SCH (11:45)
[2017-01-08] MEDS: FUROSEMIDE 100 MG/10 ML IV SCH ×2 (13:07→21:00)
[2017-01-08 13:39] LABS: FERRITIN 661.7 ng/mL (8-252)
[2017-01-08 14:01] VITALS: BP 130/69
[2017-01-08 14:10] LABS: POTASSIUM,URINE RANDOM 22 mmol/L
[2017-01-08 14:23] VITALS: BP 125/70
[2017-01-08 17:17] VITALS: BP 108/58
[2017-01-08 17:18] VITALS: BP 108/58
[2017-01-08 17:33] VITALS: BP 108/58
[2017-01-09] MEDS: LINEZOLID PMX 600MG/300ML 300 ML IV SCH ×2 (00:12→14:51)
[2017-01-09] MEDS: DILTIAZEM 90 MG TABLET PO SCH ×4 (02:33→20:07)
[2017-01-09 04:00] VITALS: BP 128/68
[2017-01-09 04:53] LABS: HEMOGLOBIN 7.7 g/dL (11.7-16.4)
[2017-01-09] MEDS: INSULIN ASPART 100 UNITS/ML, PEN SQ-INSULIN SCH ×4 (05:00→23:00)
[2017-01-09 05:10] LABS: BLOOD UREA NITROGEN 104 mg/dL (7-18)
[2017-01-09 05:14] LABS: ASPARTATE AMINO TRANSFERASE 36 U/L (15-37)
[2017-01-09 05:24] LABS: DIFF TOTAL CELLS COUNTED 100 CELL DIFF
[2017-01-09 05:29] LABS: ANISOCYTOSIS 1+; MICROCYTOSIS 1+; VERIFY COUNTS? YES
[2017-01-09] MEDS: FENTANYL PF 2,500 MCG in SODIUM CHLORIDE 0.9% 200 ML IV PRN (06:12)
[2017-01-09] MEDS: DOXAZOSIN 2MG TABLET NG SCH (08:35)
[2017-01-09] MEDS: PANTOPRAZOLE 40 MG IV IVPush SCH (08:35)
[2017-01-09] MEDS: SPIRONOLACTONE 25 MG TABLET PO SCH (08:35)
[2017-01-09] MEDS: LEVETIRACETAM 500 MG in SODIUM CHLORIDE 0.9% 100 ML IV SCH ×2 (08:35→20:06)
[2017-01-09] MEDS: FUROSEMIDE 100 MG/10 ML IV SCH ×2 (08:36→20:49)
[2017-01-09] MEDS: INSULIN DETEMIR 100 UNITS/ML, PEN SQ-INSULIN SCH ×2 (08:38→20:06)
[2017-01-09] MEDS: MICAFUNGIN 100 MG in SODIUM CHLORIDE 0.9% 100 ML IV SCH (09:40)
[2017-01-09 09:42] LABS: HEP B SURF. AB < 3.1 mIU/mL (0.0-10.0)
[2017-01-09] MEDS: CEFTRIAXONE PMX 2GM/50ML 50 ML IVPB SCH (10:32)
[2017-01-09] MEDS: IRON SUCROSE COMPLEX 100MG/5ML IV SCH (12:23)
[2017-01-09] MEDS: ERGOCALCIFEROL 50,000 UNIT CAPSULE PO SCH (12:23)
[2017-01-09 14:37] LABS: ANA SCREEN NEGATIVE (Negative)
[2017-01-10] MEDS: LINEZOLID PMX 600MG/300ML 300 ML IV SCH ×2 (01:46→16:41)
[2017-01-10] MEDS: DILTIAZEM 90 MG TABLET PO SCH ×4 (02:35→20:33)
[2017-01-10 03:23] LABS: BLOOD UREA NITROGEN 90 mg/dL (7-18)
[2017-01-10 03:25] LABS: WHITE BLOOD COUNT 12.6 x10^3/uL (3.4-10)
[2017-01-10 03:26] LABS: ASPARTATE AMINO TRANSFERASE 31 U/L (15-37)
[2017-01-10 03:45] LABS: HEMATOCRIT 22.5 % (34.6-47.8)
[2017-01-10 04:00] VITALS: BP 135/60
[2017-01-10 04:38] LABS: ABG COLLECTION SITE RIGHT RADIAL; COLLATERAL CIRCULATION TESTING NORMAL
[2017-01-10] MEDS: INSULIN ASPART 100 UNITS/ML, PEN SQ-INSULIN SCH ×4 (05:00→23:01)
[2017-01-10] MEDS: FENTANYL PF 2,500 MCG in SODIUM CHLORIDE 0.9% 200 ML IV PRN (06:17)
[2017-01-10] MEDS: PANTOPRAZOLE 40 MG IV IVPush SCH (07:22)
[2017-01-10] MEDS: LEVETIRACETAM 500 MG in SODIUM CHLORIDE 0.9% 100 ML IV SCH ×2 (07:22→20:32)
[2017-01-10] MEDS: INSULIN DETEMIR 100 UNITS/ML, PEN SQ-INSULIN SCH ×2 (07:22→20:33)
[2017-01-10 10:07] LABS: COMPLEMENT C3 113 mg/dL (82-167); COMPLEMENT C4 28 mg/dL (14-44); COMPLEMENT TOTAL (CH50) >60 U/mL (42-60)
[2017-01-10] MEDS: FUROSEMIDE 100 MG/10 ML IV SCH ×2 (13:10→20:37)
[2017-01-10] MEDS: ERYTHROMYCIN 250 MG in SODIUM CHLORIDE 0.9% 100 ML IV SCH ×2 (13:10→19:02)
[2017-01-10] MEDS: DOXAZOSIN 2MG TABLET NG SCH (13:11)
[2017-01-10] MEDS: IRON SUCROSE COMPLEX 100MG/5ML IV SCH (13:14)
[2017-01-10] MEDS: CEFTRIAXONE PMX 2GM/50ML 50 ML IVPB SCH (14:25)
[2017-01-10] MEDS: MICAFUNGIN 100 MG in SODIUM CHLORIDE 0.9% 100 ML IV SCH (15:22)
[2017-01-11] MEDS: ERYTHROMYCIN 250 MG in SODIUM CHLORIDE 0.9% 100 ML IV SCH ×2 (00:41→06:31)
[2017-01-11] MEDS: LINEZOLID PMX 600MG/300ML 300 ML IV SCH ×2 (02:14→18:09)
[2017-01-11] MEDS: DILTIAZEM 90 MG TABLET PO SCH ×4 (02:36→21:44)
[2017-01-11 03:26] LABS: WHITE BLOOD COUNT 10.5 x10^3/uL (3.4-10)
[2017-01-11 03:27] LABS: HEMATOCRIT 21.1 % (34.6-47.8); HEMOGLOBIN 6.7 g/dL (11.7-16.4)
[2017-01-11 04:00] VITALS: BP 146/53
[2017-01-11 04:48] VITALS: BP 121/55
[2017-01-11 05:01] VITALS: BP 119/57
[2017-01-11] MEDS: INSULIN ASPART 100 UNITS/ML, PEN SQ-INSULIN SCH ×4 (05:23→23:17)
[2017-01-11] MEDS: hydrALAzine 20 MG/ML, 1ML IV PRN (06:34)
[2017-01-11 06:40] VITALS: BP 155/65
[2017-01-11] MEDS: FENTANYL PF 2,500 MCG in SODIUM CHLORIDE 0.9% 200 ML IV PRN (08:56)
[2017-01-11] MEDS: PANTOPRAZOLE 40 MG IV IVPush SCH (08:57)
[2017-01-11] MEDS: LEVETIRACETAM 500 MG in SODIUM CHLORIDE 0.9% 100 ML IV SCH ×2 (08:58→21:27)
[2017-01-11] MEDS: FUROSEMIDE 100 MG/10 ML IV SCH ×2 (09:01→21:28)
[2017-01-11] MEDS: DOXAZOSIN 2MG TABLET NG SCH (09:05)
[2017-01-11] MEDS: INSULIN DETEMIR 100 UNITS/ML, PEN SQ-INSULIN SCH ×2 (09:10→21:30)
[2017-01-11 09:54] LABS: HEMATOCRIT 23.6 % (34.6-47.8); HEMOGLOBIN 7.7 g/dL (11.7-16.4)
[2017-01-11] MEDS: CEFTRIAXONE PMX 2GM/50ML 50 ML IVPB SCH (10:58)
[2017-01-11] MEDS: IRON SUCROSE COMPLEX 100MG/5ML IV SCH (10:59)
[2017-01-11] MEDS: ERYTHROMYCIN 200 MG/5 ML ORAL SOL NG SCH ×2 (13:25→21:27)
[2017-01-11] MEDS: MICAFUNGIN 100 MG in SODIUM CHLORIDE 0.9% 100 ML IV SCH (13:25)
[2017-01-12] MEDS: LINEZOLID PMX 600MG/300ML 300 ML IV SCH (01:28)
[2017-01-12] MEDS: ERYTHROMYCIN 200 MG/5 ML ORAL SOL NG SCH ×4 (01:28→19:55)
[2017-01-12] MEDS: DILTIAZEM 90 MG TABLET PO SCH ×4 (02:35→22:09)
[2017-01-12 04:00] VITALS: BP 137/65
[2017-01-12] MEDS: FENTANYL PF 2,500 MCG in SODIUM CHLORIDE 0.9% 200 ML IV PRN (04:10)
[2017-01-12] MEDS: hydrALAzine 20 MG/ML, 1ML IV PRN (05:10)
[2017-01-12] MEDS: INSULIN ASPART 100 UNITS/ML, PEN SQ-INSULIN SCH ×4 (05:16→23:00)
[2017-01-12] MEDS: PANTOPRAZOLE 40 MG IV IVPush SCH (09:11)
[2017-01-12] MEDS: FLUCONAZOLE 200 MG/100 ML 100 ML IV SCH (09:12)
[2017-01-12] MEDS: FUROSEMIDE 100 MG/10 ML IV SCH ×2 (09:12→22:10)
[2017-01-12] MEDS: DOXAZOSIN 2MG TABLET NG SCH (09:14)
[2017-01-12] MEDS: LEVETIRACETAM 500 MG in SODIUM CHLORIDE 0.9% 100 ML IV SCH ×2 (09:17→20:13)
[2017-01-12 09:21] LABS: ABG COLLECTION SITE RIGHT RADIAL; COLLATERAL CIRCULATION TESTING NORMAL; FIO2 40 %
[2017-01-12] MEDS: IRON SUCROSE COMPLEX 100MG/5ML IV SCH (11:56)
[2017-01-12] MEDS: INSULIN DETEMIR 100 UNITS/ML, PEN SQ-INSULIN SCH ×2 (11:57→20:15)
[2017-01-12 12:10] LABS: WHITE BLOOD COUNT 9.9 x10^3/uL (3.4-10)
[2017-01-12 12:14] LABS: HEMATOCRIT 21.1 % (34.6-47.8); HEMOGLOBIN 6.8 g/dL (11.7-16.4)
[2017-01-12 12:15] LABS: BLOOD UREA NITROGEN 73 mg/dL (7-18)
[2017-01-12 12:18] LABS: ASPARTATE AMINO TRANSFERASE 27 U/L (15-37)
[2017-01-12 18:56] VITALS: BP 124/63
[2017-01-12 19:14] VITALS: BP 135/64
[2017-01-12 19:30] VITALS: BP 133/63
[2017-01-12 19:35] VITALS: BP 135/61
[2017-01-13] MEDS: ERYTHROMYCIN 200 MG/5 ML ORAL SOL NG SCH ×4 (01:28→20:19)
[2017-01-13] MEDS: hydrALAzine 20 MG/ML, 1ML IV PRN (02:05)
[2017-01-13] MEDS: DILTIAZEM 90 MG TABLET PO SCH ×4 (02:33→20:16)
[2017-01-13 04:00] VITALS: BP 127/54
[2017-01-13] MEDS: FENTANYL PF 2,500 MCG in SODIUM CHLORIDE 0.9% 200 ML IV PRN (04:12)
[2017-01-13] MEDS: INSULIN ASPART 100 UNITS/ML, PEN SQ-INSULIN SCH ×4 (05:39→22:51)
[2017-01-13] MEDS: LEVETIRACETAM 500 MG in SODIUM CHLORIDE 0.9% 100 ML IV SCH ×2 (08:02→20:15)
[2017-01-13] MEDS: PANTOPRAZOLE 40 MG IV IVPush SCH (08:02)
[2017-01-13] MEDS: FLUCONAZOLE 200 MG/100 ML 100 ML IV SCH (08:02)
[2017-01-13] MEDS: INSULIN DETEMIR 100 UNITS/ML, PEN SQ-INSULIN SCH ×2 (08:05→20:17)
[2017-01-13] MEDS: DOXAZOSIN 2MG TABLET NG SCH (10:43)
[2017-01-13] MEDS: FUROSEMIDE 100 MG/10 ML IV SCH ×2 (10:44→22:50)
[2017-01-13] MEDS: IRON SUCROSE COMPLEX 100MG/5ML IV SCH (10:44)
[2017-01-13] MEDS ORDERED: LACTULOSE 20 GM/30 ML UDC NG PRN (16:30)
[2017-01-13] MEDS ORDERED: PHARMACY MAY ADJ FOR RENAL FX MC SCH (16:30)
[2017-01-13] MEDS ORDERED: ACETAMINOPHEN 325 MG TABLET NG PRN (16:30)
[2017-01-13] MEDS ORDERED: BISACODYL 10 MG SUPP PR PRN (16:30)
[2017-01-14] MEDS: ERYTHROMYCIN 200 MG/5 ML ORAL SOL NG SCH ×4 (02:01→19:21)
[2017-01-14] MEDS: DILTIAZEM 90 MG TABLET PO SCH ×4 (02:01→19:21)
[2017-01-14 04:30] VITALS: BP 140/60
[2017-01-14] MEDS: INSULIN ASPART 100 UNITS/ML, PEN SQ-INSULIN SCH ×4 (05:00→23:44)
[2017-01-14] MEDS: hydrALAzine 20 MG/ML, 1ML IV PRN ×2 (05:09→06:42)
[2017-01-14] MEDS: FENTANYL PF 2,500 MCG in SODIUM CHLORIDE 0.9% 200 ML IV PRN (06:34)
[2017-01-14 07:18] LABS: HEMATOCRIT 24.6 % (34.6-47.8); HEMOGLOBIN 8.1 g/dL (11.7-16.4)
[2017-01-14] MEDS: LEVETIRACETAM 500 MG in SODIUM CHLORIDE 0.9% 100 ML IV SCH ×2 (08:26→19:21)
[2017-01-14] MEDS: PANTOPRAZOLE 40 MG IV IVPush SCH (08:28)
[2017-01-14] MEDS: FLUCONAZOLE 200 MG/100 ML 100 ML IV SCH (08:28)
[2017-01-14] MEDS: FUROSEMIDE 100 MG/10 ML IV SCH ×2 (08:28→21:11)
[2017-01-14] MEDS: INSULIN DETEMIR 100 UNITS/ML, PEN SQ-INSULIN SCH ×2 (08:31→19:22)
[2017-01-14] MEDS: DOXAZOSIN 2MG TABLET NG SCH (09:44)
[2017-01-15] MEDS: [UNRECOGNIZED DRUG - OTHER] PO PRN ×3 (00:37→05:46)
[2017-01-15] MEDS: ERYTHROMYCIN 200 MG/5 ML ORAL SOL NG SCH ×4 (02:20→21:09)
[2017-01-15] MEDS: DILTIAZEM 90 MG TABLET PO SCH ×4 (02:20→21:07)
[2017-01-15 04:18] LABS: HEMOGLOBIN 7.3 g/dL (11.7-16.4); WHITE BLOOD COUNT 15.7 x10^3/uL (3.4-10)
[2017-01-15 04:19] LABS: HEMATOCRIT 22.4 % (34.6-47.8)
[2017-01-15 04:21] LABS: BLOOD UREA NITROGEN 68 mg/dL (7-18)
[2017-01-15 04:25] LABS: ASPARTATE AMINO TRANSFERASE 29 U/L (15-37)
[2017-01-15 04:30] LABS: ABG COLLECTION SITE LEFT RADIAL; COLLATERAL CIRCULATION TESTING NORMAL
[2017-01-15] MEDS: INSULIN ASPART 100 UNITS/ML, PEN SQ-INSULIN SCH ×4 (05:41→23:00)
[2017-01-15] MEDS: FENTANYL PF 2,500 MCG in SODIUM CHLORIDE 0.9% 200 ML IV PRN (05:43)
[2017-01-15] MEDS: PANTOPRAZOLE 40 MG IV IVPush SCH (08:31)
[2017-01-15] MEDS: INSULIN DETEMIR 100 UNITS/ML, PEN SQ-INSULIN SCH ×2 (08:32→21:09)
[2017-01-15] MEDS: DOXAZOSIN 2MG TABLET NG SCH (12:36)
[2017-01-15] MEDS: FLUCONAZOLE 200 MG/100 ML 100 ML IV SCH (12:37)
[2017-01-15] MEDS: LEVETIRACETAM 500 MG in SODIUM CHLORIDE 0.9% 100 ML IV SCH ×2 (12:37→21:09)
[2017-01-15] MEDS: FUROSEMIDE 100 MG/10 ML IV SCH ×2 (12:38→21:07)
[2017-01-16] MEDS: ERYTHROMYCIN 200 MG/5 ML ORAL SOL NG SCH ×4 (02:14→19:56)
[2017-01-16] MEDS: DILTIAZEM 90 MG TABLET PO SCH ×4 (02:30→19:58)
[2017-01-16 04:00] VITALS: BP 121/42
[2017-01-16] MEDS: INSULIN ASPART 100 UNITS/ML, PEN SQ-INSULIN SCH ×4 (05:00→22:08)
[2017-01-16] MEDS: DOXAZOSIN 2MG TABLET NG SCH (06:18)
[2017-01-16] MEDS: FENTANYL PF 2,500 MCG in SODIUM CHLORIDE 0.9% 200 ML IV PRN (07:57)
[2017-01-16] MEDS: INSULIN DETEMIR 100 UNITS/ML, PEN SQ-INSULIN SCH ×2 (08:00→19:57)
[2017-01-16] MEDS: FLUCONAZOLE 200 MG/100 ML 100 ML IV SCH (08:06)
[2017-01-16] MEDS: LEVETIRACETAM 500 MG in SODIUM CHLORIDE 0.9% 100 ML IV SCH ×2 (09:40→19:57)
[2017-01-16] MEDS: PANTOPRAZOLE 40 MG IV IVPush SCH (09:41)
[2017-01-16] MEDS: ERGOCALCIFEROL 50,000 UNIT CAPSULE PO SCH (10:05)
[2017-01-16] MEDS: FUROSEMIDE 100 MG/10 ML IV SCH ×2 (10:05→19:57)
[2017-01-17] MEDS: ERYTHROMYCIN 200 MG/5 ML ORAL SOL NG SCH ×4 (01:30→20:03)
[2017-01-17] MEDS: INSULIN ASPART 100 UNITS/ML, PEN SQ-INSULIN SCH ×4 (07:00→23:00)
[2017-01-17] MEDS: PANTOPRAZOLE 40 MG IV IVPush SCH (07:30)
[2017-01-17] MEDS: LEVETIRACETAM 500 MG in SODIUM CHLORIDE 0.9% 100 ML IV SCH ×2 (08:00→20:02)
[2017-01-17] MEDS: DILTIAZEM 90 MG TABLET PO SCH ×4 (08:30→20:02)
[2017-01-17] MEDS: FLUCONAZOLE 200 MG/100 ML 100 ML IV SCH (08:30)
[2017-01-17] MEDS: INSULIN DETEMIR 100 UNITS/ML, PEN SQ-INSULIN SCH ×2 (08:36→20:02)
[2017-01-17] MEDS: DOXAZOSIN 2MG TABLET NG SCH (09:00)
[2017-01-17] MEDS: FUROSEMIDE 100 MG/10 ML IV SCH ×2 (09:00→20:03)
[2017-01-17] MEDS: SCOPOLAMINE PATCH, 1.5MG PATCH.TD72 TD SCH (09:30)
[2017-01-17 12:19] LABS: ASPARTATE AMINO TRANSFERASE 25 U/L (15-37); BLOOD UREA NITROGEN 56 mg/dL (7-18)
[2017-01-17 13:52] VITALS: BP 141/52
[2017-01-17 17:05] LABS: GLUCOSE, CSF 65 mg/dL (40-80)
[2017-01-17 19:25] VITALS: BP 110/54
[2017-01-18] MEDS: DILTIAZEM 90 MG TABLET PO SCH ×4 (02:05→20:28)
[2017-01-18] MEDS: ERYTHROMYCIN 200 MG/5 ML ORAL SOL NG SCH (02:05)
[2017-01-18 03:45] VITALS: BP 111/57
[2017-01-18] MEDS: INSULIN ASPART 100 UNITS/ML, PEN SQ-INSULIN SCH ×4 (05:24→23:00)
[2017-01-18] MEDS: PANTOPRAZOLE 40 MG IV IVPush SCH (07:22)
[2017-01-18] MEDS: FLUCONAZOLE 200 MG/100 ML 100 ML IV SCH (07:22)
[2017-01-18] MEDS: LEVETIRACETAM 500 MG in SODIUM CHLORIDE 0.9% 100 ML IV SCH ×2 (07:22→20:27)
[2017-01-18] MEDS: INSULIN DETEMIR 100 UNITS/ML, PEN SQ-INSULIN SCH ×2 (07:29→20:28)
[2017-01-18 07:52] LABS: BLOOD UREA NITROGEN 48 mg/dL (7-18)
[2017-01-18 08:06] LABS: ASPARTATE AMINO TRANSFERASE 23 U/L (15-37)
[2017-01-18] MEDS ORDERED: CHOLESTYRAMINE LIGHT 4GM PACKET PO PRN (08:30)
[2017-01-18] MEDS: FUROSEMIDE 100 MG/10 ML IV SCH ×2 (08:40→20:33)
[2017-01-18] MEDS: DOXAZOSIN 2MG TABLET NG SCH (08:43)
[2017-01-18] MEDS: FENTANYL PF 2,500 MCG in SODIUM CHLORIDE 0.9% 200 ML IV PRN (10:00)
[2017-01-19] VITALS (7 sets, daily range): BP systolic 116–141; BP diastolic 56–98
[2017-01-19] MEDS: DILTIAZEM 90 MG TABLET PO SCH ×4 (02:55→20:35)
[2017-01-19 04:31] LABS: ABG COLLECTION SITE RIGHT RADIAL; COLLATERAL CIRCULATION TESTING NORMAL
[2017-01-19] MEDS: INSULIN ASPART 100 UNITS/ML, PEN SQ-INSULIN SCH ×4 (04:39→23:00)
[2017-01-19 04:48] LABS: BLOOD UREA NITROGEN 59 mg/dL (7-18)
[2017-01-19 04:52] LABS: ASPARTATE AMINO TRANSFERASE 18 U/L (15-37)
[2017-01-19 05:49] LABS: HEMATOCRIT 20.4 % (34.6-47.8); HEMOGLOBIN 6.5 g/dL (11.7-16.4); WHITE BLOOD COUNT 10.8 x10^3/uL (3.4-10)
[2017-01-19 07:40] LABS: DIFF TOTAL CELLS COUNTED 100 CELL DIFF
[2017-01-19 07:41] LABS: ANISOCYTOSIS 1+; VERIFY COUNTS? YES
[2017-01-19 07:42] LABS: POIKILOCYTOSIS 1+; POLYCHROMASIA 1+
[2017-01-19] MEDS: LEVETIRACETAM 500 MG in SODIUM CHLORIDE 0.9% 100 ML IV SCH ×2 (07:57→20:34)
[2017-01-19] MEDS: FLUCONAZOLE 200 MG/100 ML 100 ML IV SCH (07:57)
[2017-01-19] MEDS: PANTOPRAZOLE 40 MG IV IVPush SCH (07:57)
[2017-01-19] MEDS: FUROSEMIDE 100 MG/10 ML IV SCH ×2 (07:58→20:35)
[2017-01-19] MEDS: DOXAZOSIN 2MG TABLET NG SCH (07:59)
[2017-01-19] MEDS: INSULIN DETEMIR 100 UNITS/ML, PEN SQ-INSULIN SCH ×2 (08:00→20:35)
[2017-01-20] MEDS: DILTIAZEM 90 MG TABLET PO SCH ×4 (02:29→20:33)
[2017-01-20 04:00] VITALS: BP 114/59
[2017-01-20] MEDS: INSULIN ASPART 100 UNITS/ML, PEN SQ-INSULIN SCH ×4 (05:00→23:00)
[2017-01-20] MEDS: FENTANYL PF 2,500 MCG in SODIUM CHLORIDE 0.9% 200 ML IV PRN (06:36)
[2017-01-20] MEDS: PANTOPRAZOLE 40 MG IV IVPush SCH (07:15)
[2017-01-20] MEDS: LEVETIRACETAM 500 MG in SODIUM CHLORIDE 0.9% 100 ML IV SCH ×2 (07:15→20:32)
[2017-01-20] MEDS: FLUCONAZOLE 200 MG/100 ML 100 ML IV SCH (07:58)
[2017-01-20] MEDS: DOXAZOSIN 2MG TABLET NG SCH (07:58)
[2017-01-20] MEDS: INSULIN DETEMIR 100 UNITS/ML, PEN SQ-INSULIN SCH ×2 (07:59→20:34)
[2017-01-20] MEDS: FUROSEMIDE 100 MG/10 ML IV SCH ×2 (07:59→20:33)
[2017-01-20] MEDS: SCOPOLAMINE PATCH, 1.5MG PATCH.TD72 TD SCH (08:01)
[2017-01-20 09:56] LABS: ASPARTATE AMINO TRANSFERASE 23 U/L (15-37); BLOOD UREA NITROGEN 76 mg/dL (7-18); HEMATOCRIT 27.8 % (34.6-47.8); HEMOGLOBIN 9.1 g/dL (11.7-16.4); WHITE BLOOD COUNT 11.7 x10^3/uL (3.4-10)
[2017-01-20] MEDS ORDERED: POLYETHYLENE GLYCOL 17 GM PACKET PO PRN (14:30)
[2017-01-20] MEDS ORDERED: BISACODYL 10 MG SUPP PR PRN (14:30)
[2017-01-20] MEDS ORDERED: ACETAMINOPHEN 325 MG TABLET NG PRN (14:30)
[2017-01-20] MEDS ORDERED: LIDOCAINE-MPF 1%, 2ML ENDO PRN (14:30)
[2017-01-20] MEDS ORDERED: SENNA/DOCUSATE TABLET NG PRN (14:30)
[2017-01-20] MEDS ORDERED: FENTANYL PF 100 MCG/2ML IVPush PRN (14:30)
[2017-01-20] MEDS ORDERED: LACTULOSE 20 GM/30 ML UDC NG PRN (14:30)
[2017-01-21] MEDS: DILTIAZEM 90 MG TABLET PO SCH ×4 (02:38→21:38)
[2017-01-21 04:00] VITALS: BP 145/85
[2017-01-21 04:12] LABS: HEMATOCRIT 25.5 % (34.6-47.8); HEMOGLOBIN 8.4 g/dL (11.7-16.4); WHITE BLOOD COUNT 9.4 x10^3/uL (3.4-10)
[2017-01-21 04:23] LABS: ASPARTATE AMINO TRANSFERASE 20 U/L (15-37); BLOOD UREA NITROGEN 81 mg/dL (7-18)
[2017-01-21] MEDS: INSULIN ASPART 100 UNITS/ML, PEN SQ-INSULIN SCH ×4 (05:00→23:00)
[2017-01-21] MEDS: FUROSEMIDE 100 MG/10 ML IV SCH ×2 (07:54→21:40)
[2017-01-21] MEDS: FLUCONAZOLE 200 MG/100 ML 100 ML IV SCH (07:55)
[2017-01-21] MEDS: DOXAZOSIN 2MG TABLET NG SCH (07:55)
[2017-01-21] MEDS: LEVETIRACETAM 500 MG in SODIUM CHLORIDE 0.9% 100 ML IV SCH ×2 (07:55→19:51)
[2017-01-21] MEDS: PANTOPRAZOLE 40 MG IV IVPush SCH (07:56)
[2017-01-21] MEDS: INSULIN DETEMIR 100 UNITS/ML, PEN SQ-INSULIN SCH ×2 (08:05→19:58)
[2017-01-21] MEDS ORDERED: METHYLNALTREXONE 12 MG/0.6 ML SQ PRN (09:30)
[2017-01-21] MEDS ORDERED: MAGNESIUM SULFATE PMX 2GM/50ML 50 ML IV ONE (10:30)
[2017-01-21] MEDS: [UNRECOGNIZED DRUG - OTHER] PO PRN ×2 (10:53→14:12)
[2017-01-22] MEDS: DILTIAZEM 90 MG TABLET PO SCH ×2 (02:36→08:37)
[2017-01-22 04:00] VITALS: BP 148/58
[2017-01-22 04:27] LABS: HEMATOCRIT 26.3 % (34.6-47.8); HEMOGLOBIN 8.6 g/dL (11.7-16.4); WHITE BLOOD COUNT 11.6 x10^3/uL (3.4-10)
[2017-01-22 04:35] LABS: BLOOD UREA NITROGEN 87 mg/dL (7-18)
[2017-01-22] MEDS: INSULIN ASPART 100 UNITS/ML, PEN SQ-INSULIN SCH (05:42)
[2017-01-22] MEDS: LEVETIRACETAM 500 MG in SODIUM CHLORIDE 0.9% 100 ML IV SCH (07:55)
[2017-01-22] MEDS: DOXAZOSIN 2MG TABLET NG SCH (08:36)
[2017-01-22] MEDS: PANTOPRAZOLE 40 MG IV IVPush SCH (08:36)
[2017-01-22] MEDS: FLUCONAZOLE 200 MG/100 ML 100 ML IV SCH (08:36)
[2017-01-22] MEDS: FUROSEMIDE 100 MG/10 ML IV SCH (08:36)
[2017-01-22] MEDS: INSULIN DETEMIR 100 UNITS/ML, PEN SQ-INSULIN SCH (08:45)
[2017-01-22] MEDS ORDERED: LORazepam 2 MG/ML, 1ML ONE (10:35)
[2017-01-22] MEDS ORDERED: morphine SULFATE 10 MG/ML, 1ML IV ONE (11:00)
[2017-01-22] MEDS ORDERED: LORazepam 2 MG/ML, 1ML IV ONE (11:00)
[2017-01-22] MEDS ORDERED: ATROPINE OPHTH SOLN 1%, 2ML PO PRN (11:00)
[2017-01-22] MEDS: LORazepam 2 MG/ML, 1ML IV PRN ×2 (11:11→11:33)
== END 2017-01-22 19:45 | disposition expired | DRG 23 ==
LOC: ED 09:33 → EDIP 10:58 → ICU 12:56 → CCU 01-05 15:08 → 3NW 01-22 13:47
PROVIDERS: ADMIT Hospitalist; ATTEND Hospitalist
PROC: 5A1955Z Respiratory Ventilation, Greater than 96 Consecutive Hours (ICD-10-PCS; principal; 2016-12-21)
PROC: 009600Z Drainage of Cerebral Ventricle with Drainage Device, Open Approach (ICD-10-PCS; 2016-12-21)
PROC: 0BH17EZ Insertion of Endotracheal Airway into Trachea, Via Natural or Artificial Opening (ICD-10-PCS; 2016-12-21)
PROC: 0T9B70Z Drainage of Bladder with Drainage Device, Via Natural or Artificial Opening (ICD-10-PCS; 2016-12-21)
PROC: 02HV33Z Insertion of Infusion Device into Superior Vena Cava, Percutaneous Approach (ICD-10-PCS; 2016-12-24)
PROC: B548ZZA Ultrasonography of Superior Vena Cava, Guidance (ICD-10-PCS; 2016-12-24)
PROC: 02HV33Z Insertion of Infusion Device into Superior Vena Cava, Percutaneous Approach (ICD-10-PCS; 2017-01-08)
PROC: B548ZZA Ultrasonography of Superior Vena Cava, Guidance (ICD-10-PCS; 2017-01-08)
PROC: 30233N1 Transfusion of Nonautologous Red Blood Cells into Peripheral Vein, Percutaneous Approach (ICD-10-PCS; 2017-01-08)
DX: I61.5 Nontraumatic intracerebral hemorrhage, intraventricular (principal); G93.40 Encephalopathy, unspecified; J96.00 Acute respiratory failure, unspecified whether with hypoxia or hypercapnia; N17.0 Acute kidney failure with tubular necrosis; J15.212 Pneumonia due to Methicillin resistant Staphylococcus aureus; J15.6 Pneumonia due to other Gram-negative bacteria; J81.0 Acute pulmonary edema; K56.7 Ileus, unspecified; J95.851 Ventilator associated pneumonia; Z99.11 Dependence on respirator [ventilator] status; G91.1 Obstructive hydrocephalus; E46 Unspecified protein-calorie malnutrition; E87.0 Hyperosmolality and hypernatremia; E87.2 Acidosis; I16.1 Hypertensive emergency; D64.9 Anemia, unspecified; Z51.5 Encounter for palliative care; E11.65 Type 2 diabetes mellitus with hyperglycemia; E83.51 Hypocalcemia; E87.5 Hyperkalemia; E87.6 Hypokalemia; E87.70 Fluid overload, unspecified; I16.0 Hypertensive urgency; T78.3XXA Angioneurotic edema, initial encounter; Z91.14 Patient's other noncompliance with medication regimen; Z91.19 Patient's noncompliance with other medical treatment and regimen; Z98.2 Presence of cerebrospinal fluid drainage device; Y84.8 Other medical procedures as the cause of abnormal reaction of the patient, or of later complication, without mention of misadventure at the time of the procedure; Y95 Nosocomial condition; Z88.6 Allergy status to analgesic agent
CPT/HCPCS: 31500; 36415; 36556; 36569; 36600; 70450; 70496; 70498; 71010; 76770; 76937; 77001; 80048; 80053; 80069; 80202; 80307; 80329; 81001; 81003; 82150; 82306; 82436; 82550; 82728; 82803; 82945; 82962; 83010; 83036; 83540; 83550; 83605; 83690; 83735; 83970; 84100; 84132; 84133; 84157; 84300; 84478; 84484; 84550; 85014; 85018; 85025; 85379; 85610; 85730; 86038; 86063; 86160; 86162; 86225; 86704; 86706; 86850; 86900; 86923; 87040; 87070; 87077; 87081; 87086; 87106; 87186; 87205; 87324; 87340; 89051; 93005; 94002; 94003; 94640; 95819; 96374; 96375; 99292; C1729; J0696; J1100; J1364; J1756; J1815; J1940; J1953; J2020; J2248; J2250; J2543; J2704; J3010; J3370; J3480; J7060; P9047; Q9967; C1751; C1769; C9113; G0480; J0330; J0360; J1450; J1642; J2060; J2270; J7030; J7040; J7050; P9016; S0028